=== PATIENT | male | born 1980 | race Hispanic/Latino ===

== ENCOUNTER 2017-07-29 16:08 | Emergency (ER) | payer BC ==
[~2017-07-29] VITALS: Ht 177.8 cm; Wt 81.6 kg
[~2017-07-29 16:08] MED LIST: ALEVE220 MG PO; FLONASE ALLERG9.9 ML BOTH NARES
[2017-07-29] MEDS ORDERED: CIPRODEX OTIC7.5 ML LEFT EAR (16:46)
[2017-07-29 17:01] VITALS: BP 138/75
== END 2017-07-29 17:02 | disposition home or self-care (01) ==
LOC: EME 16:08
DX: S09.22XA Traumatic rupture of left ear drum, initial encounter (principal)
CPT/HCPCS: 99281; 99283